=== PATIENT | female | born 2005 | race Caucasian/White ===

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

== ENCOUNTER 2023-08-10 22:24 | Emergency (ER) | payer MEDICAID, OTHER ==
[~2023-08-10] VITALS: Ht 160 cm; Wt 77.9 kg
[2023-08-10 22:24] VITALS: BP 123/78; TEMP 97.1; O2SAT 99
[~2023-08-10 22:24] MED LIST changes: +CEFD1CAP9 PO; -CEFD300C41 PO
[2023-08-10 23:15] LABS: URINE PREG TEST NEGATIVE (NEGATIVE)
== END 2023-08-11 00:05 | disposition left against medical advice (07) ==
LOC: M ED 22:24
DX: Z53.21 Procedure and treatment not carried out due to patient leaving prior to being seen by health care provider (principal)

== ENCOUNTER → 2023-09-28 | Outpatient (CLI) | payer OTHER ==
[2023-09-28 16:13] LABS: HEMATOCRIT 38.2 % (36.0-47.0); HEMOGLOBIN 12.8 g/dl (12.0-15.5); MEAN CORPUSCULAR HEMOGLOBIN 27.6 pg (27.0-33.0); MEAN CORPUSCULAR HGB CONC 33.5 g/dl (32.0-36.5); MEAN CORPUSCULAR VOLUME 82.5 fl (80.0-96.0); PLATELET COUNT, AUTOMATED 298 10^3/uL (150-450); RED BLOOD COUNT 4.63 10^6/uL (4.00-5.40); WHITE BLOOD COUNT 10.9 10^3/uL (4.0-10.0)
[2023-09-28 17:18] LABS: HEPATITIS C VIRUS ABY INDEX 0.04 INDEX (<0.8)
[2023-09-28 17:34] LABS: GC DNA AMPLIFICATION NEGATIVE (NEGATIVE)
== END ==
LOC: M PLALAB 12:22
PROVIDERS: ATTEND Advanced Practice Midwife
DX: Z34.81 Encounter for supervision of other normal pregnancy, first trimester (principal)

== ENCOUNTER → 2023-12-25 | Outpatient (CLI) | payer OTHER | LOC: M WHC 10:04 | PROVIDERS: ATTEND Obstetrics & Gynecology | DX: Z34.92 Encounter for supervision of normal pregnancy, unspecified, second trimester (principal); Z3A.19 19 weeks gestation of pregnancy ==

== ENCOUNTER → 2024-01-15 | Outpatient (CLI) | payer OTHER | LOC: M WHC 10:32 | PROVIDERS: ATTEND Obstetrics & Gynecology | DX: Z36.2 Encounter for other antenatal screening follow-up (principal); Z3A.22 22 weeks gestation of pregnancy ==

== ENCOUNTER → 2024-02-12 | Outpatient (CLI) | payer OTHER ==
[2024-02-12 18:59] LABS: HEMATOCRIT 28.4 % (36.0-47.0); HEMOGLOBIN 9.2 g/dl (12.0-15.5); MEAN CORPUSCULAR HEMOGLOBIN 26.3 pg (27.0-33.0); MEAN CORPUSCULAR HGB CONC 32.4 g/dl (32.0-36.5); MEAN CORPUSCULAR VOLUME 81.1 fl (80.0-96.0); PLATELET COUNT, AUTOMATED 257 10^3/uL (150-450); WHITE BLOOD COUNT 11.5 10^3/uL (4.0-10.0)
[2024-02-12 19:22] LABS: GLUCOSE CHALLENGE TEST 1 HOUR 119 MG/DL (LESS THAN 140)
[2024-02-12 20:43] LABS: GC DNA AMPLIFICATION NEGATIVE (NEGATIVE)
[2024-02-12 21:14] LABS: HIV 1&2 SCREEN REACTIVE (NEGATIVE)
== END ==
LOC: M PLALAB 13:14
PROVIDERS: ATTEND Nurse Practitioner Family
DX: Z34.02 Encounter for supervision of normal first pregnancy, second trimester (principal); Z3A.00 Weeks of gestation of pregnancy not specified

== ENCOUNTER → 2024-02-16 | Outpatient (REF) | payer OTHER, MEDICAID | LOC: M SFHCPLAZ 12:22 | DX: R09.89 Other specified symptoms and signs involving the circulatory and respiratory systems (principal) ==

== ENCOUNTER → 2024-02-20 | Outpatient (CLI) | payer OTHER | LOC: M PLALAB 12:11 | PROVIDERS: ATTEND Internal Medicine Infectious Disease | DX: Z21 Asymptomatic human immunodeficiency virus [HIV] infection status (principal) ==

== ENCOUNTER → 2024-03-07 | Outpatient (REF) | payer OTHER, MEDICAID | LOC: M PLALAB 12:10 | PROVIDERS: ATTEND Nurse Practitioner Family | DX: Z53.9 Procedure and treatment not carried out, unspecified reason (principal) ==

== ENCOUNTER → 2024-03-07 | Outpatient (REF) | payer OTHER ==
[2024-03-08 18:23] LABS: HIV-1 RNA PCR QUANT 2 NOT DETECTED copies/mL (NOT DETECTED); HIV-1 RNA PCR QUANT 3 NOT DETECTED (NOT DETECTED)
== END ==
LOC: M SFHCPLAZ 13:17
PROVIDERS: ATTEND Internal Medicine Infectious Disease
DX: Z21 Asymptomatic human immunodeficiency virus [HIV] infection status (principal)

== ENCOUNTER → 2024-03-07 | Outpatient (CLI) | payer OTHER ==
[2024-03-07 13:16] LABS: HEMATOCRIT 30.8 % (36.0-47.0); HEMOGLOBIN 9.7 g/dl (12.0-15.5); MEAN CORPUSCULAR HEMOGLOBIN 25.1 pg (27.0-33.0); MEAN CORPUSCULAR HGB CONC 31.5 g/dl (32.0-36.5); MEAN CORPUSCULAR VOLUME 79.6 fl (80.0-96.0); PLATELET COUNT, AUTOMATED 262 10^3/uL (150-450); RED BLOOD COUNT 3.87 10^6/uL (4.00-5.40); WHITE BLOOD COUNT 13.4 10^3/uL (4.0-10.0)
[2024-03-07 13:45] LABS: PERCENT SATURATION 37.3 % (13.2-45.0)
[2024-03-07 13:48] LABS: FERRITIN 5.4 NG/ML (7.3-270.7)
== END ==
LOC: M LAB 12:38
PROVIDERS: ATTEND Nurse Practitioner Family
DX: O99.013 Anemia complicating pregnancy, third trimester (principal)

== ENCOUNTER 2024-04-04 12:00 | Outpatient (CLI) | payer OTHER ==
[~2024-04-04] VITALS: Ht 160 cm; Wt 80.0 kg
[~2024-04-04 12:00] MED LIST changes: +ACETAMINOPHEN 650 MG PO ONE; +ALBUTEROL SULFATE 2.5MG/0.5ML INH NEB SOLN INH PRN; +EPINEPHrine INJ 1 MG/ML 1ML AMP IM PRN; +NS (Normal Saline) 0.9% 1,000 ML IV SCH; +diphenhydrAMINE 25MG CAP PO ONE; +diphenhydrAMINE 50MG/ML VIAL IV PRN; +methylPREDNISolone 125MG 2ML VIAL IV PRN
[2024-04-04] MEDS: FERRIC CARBOXYMALTOSE 750 MG (VIAL MATE) IN 100ML NS IV ONE (12:07)
[2024-04-04 12:30] VITALS: BP 96/55; O2SAT 98
== END 2024-04-04 12:30 ==
LOC: M INFU 12:00
PROVIDERS: ATTEND Nurse Practitioner Family
DX: D64.9 Anemia, unspecified (principal)
CPT/HCPCS: 96365; J1439

== ENCOUNTER → 2024-04-15 | Outpatient (CLI) | payer OTHER ==
[~2024-04-15] MED LIST changes: -ACETAMINOPHEN 650 MG PO ONE; -ALBUTEROL SULFATE 2.5MG/0.5ML INH NEB SOLN INH PRN; -EPINEPHrine INJ 1 MG/ML 1ML AMP IM PRN; -NS (Normal Saline) 0.9% 1,000 ML IV SCH; -diphenhydrAMINE 25MG CAP PO ONE; -diphenhydrAMINE 50MG/ML VIAL IV PRN; -methylPREDNISolone 125MG 2ML VIAL IV PRN
[2024-04-15 14:08] LABS: HEMATOCRIT 37.9 % (36.0-47.0); HEMOGLOBIN 11.4 g/dl (12.0-15.5); MEAN CORPUSCULAR HEMOGLOBIN 25.6 pg (27.0-33.0); MEAN CORPUSCULAR HGB CONC 30.1 g/dl (32.0-36.5); MEAN CORPUSCULAR VOLUME 85.2 fl (80.0-96.0); PLATELET COUNT, AUTOMATED 269 10^3/uL (150-450); RED BLOOD COUNT 4.45 10^6/uL (4.00-5.40); WHITE BLOOD COUNT 7.1 10^3/uL (4.0-10.0)
[2024-04-15 14:09] LABS: APPEARANCE, URINE CLOUDY (CLEAR); BACTERIA, URINE AUTO 3+ (NEGATIVE); BILIRUBIN, URINE AUTO NEGATIVE (NEGATIVE); BLOOD, URINE BLOOD 1+ (NEGATIVE); COLOR, URINE YELLOW (YELLOW); GLUCOSE, URINE (UA) AUTO NEGATIVE (NEGATIVE); KETONE, URINE AUTO 1+ mg/dL (NEGATIVE); LEUKOCYTE ESTERASE, URINE AUTO 3+ (NEGATIVE); MUCUS, URINE SMALL (NEGATIVE); NITRITE, URINE AUTO NEGATIVE (NEGATIVE); PROTEIN, URINE AUTO 1+ mg/dL (NEGATIVE); RBC, URINE AUTO 1 /HPF (0-3); SPECIFIC GRAVITY URINE AUTO 1.014 (1.002-1.035); SQUAMOUS EPITHELIAL CELL UR AU 12 /HPF (0-6); UROBILINOGEN, URINE AUTO 0.2 mg/dL (0.0-2.0); WBC, URINE AUTO 33 /HPF (0-3)
== END ==
LOC: M PLALAB 11:52
PROVIDERS: ATTEND Advanced Practice Midwife
DX: O99.019 Anemia complicating pregnancy, unspecified trimester (principal); Z3A.00 Weeks of gestation of pregnancy not specified; D64.9 Anemia, unspecified

== ENCOUNTER → 2024-05-08 | Outpatient (REF) | payer OTHER, MEDICAID | LOC: M PLALAB 15:42 | PROVIDERS: ATTEND Obstetrics & Gynecology | DX: Z34.93 Encounter for supervision of normal pregnancy, unspecified, third trimester (principal) ==

== ENCOUNTER → 2024-05-15 | Outpatient (REF) | payer MEDICAID, OTHER | LOC: M SFHCWAGY 10:13 | PROVIDERS: ATTEND Obstetrics & Gynecology | DX: R82.90 Unspecified abnormal findings in urine (principal) ==

== ENCOUNTER → 2024-06-10 | Outpatient (CLI) | payer OTHER | LOC: M PLALAB 10:10 | PROVIDERS: ATTEND Advanced Practice Midwife | DX: Z21 Asymptomatic human immunodeficiency virus [HIV] infection status (principal) ==

== ENCOUNTER 2024-09-09 12:41 | Emergency (ER) | payer MEDICAID, OTHER ==
[~2024-09-09] VITALS: Ht 165.1 cm; Wt 78.2 kg
[2024-09-09] MEDS ORDERED: ESCITALOPRAM (12:53)
[2024-09-09] MEDS ORDERED: BUSP5TA (12:53)
[2024-09-09] MEDS ORDERED: DROS4TAB (12:53)
[2024-09-09] MEDS: IBUPROFEN 600 MG TAB PO ONE (13:11)
[2024-09-09 14:22] VITALS: BP 110/60; TEMP 98.2; O2SAT 97
== END 2024-09-09 14:39 | disposition home or self-care (01) ==
LOC: M ED 12:41
DX: S99.921A Unspecified injury of right foot, initial encounter (principal); X50.0XXA Overexertion from strenuous movement or load, initial encounter; K21.9 Gastro-esophageal reflux disease without esophagitis; F17.200 Nicotine dependence, unspecified, uncomplicated; Y92.833 Campsite as the place of occurrence of the external cause; Y93.89 Activity, other specified; Y99.9 Unspecified external cause status; Z79.899 Other long term (current) drug therapy

== ENCOUNTER → 2024-09-13 | Outpatient (REF) | payer OTHER ==
[~2024-09-13] MED LIST changes: +BUSP5TA; +DROS4TAB; +ESCITALOPRAM
[2024-09-13 18:22] LABS: APPEARANCE, URINE CLOUDY (CLEAR); BACTERIA, URINE AUTO NEGATIVE (NEGATIVE); BILIRUBIN, URINE AUTO NEGATIVE (NEGATIVE); BLOOD, URINE BLOOD NEGATIVE (NEGATIVE); GLUCOSE, URINE (UA) AUTO NEGATIVE (NEGATIVE); KETONE, URINE AUTO NEGATIVE (NEGATIVE); LEUKOCYTE ESTERASE, URINE AUTO TRACE (NEGATIVE); MUCUS, URINE SMALL (NEGATIVE); NITRITE, URINE AUTO NEGATIVE (NEGATIVE); PROTEIN, URINE AUTO 1+ mg/dL (NEGATIVE); RBC, URINE AUTO 1 /HPF (0-3); SPECIFIC GRAVITY URINE AUTO 1.027 (1.002-1.035); SQUAMOUS EPITHELIAL CELL UR AU 38 /HPF (0-6); UROBILINOGEN, URINE AUTO 4.0 mg/dL (0.0-2.0); WBC, URINE AUTO 10 /HPF (0-3)
== END ==
LOC: M SFHCPLAZ 17:03
PROVIDERS: ATTEND Family Medicine
DX: N39.0 Urinary tract infection, site not specified (principal); Z86.19 Personal history of other infectious and parasitic diseases